=== PATIENT | female | born 1985 | race Caucasian/White ===

== ENCOUNTER 2021-10-02 23:03 | Emergency (ER) | payer MEDICAID ==
[~2021-10-02] VITALS: Ht 167.6 cm; Wt 81.8 kg
[2021-10-02 23:16] VITALS: BP 179/122
[2021-10-03] MEDS ORDERED: TRIA15CR61 TOP (00:45)
[2021-10-03] MEDS ORDERED: triamcinolone acetonide 40mg/ml inj IM ONE (00:45)
[2021-10-03] MEDS ORDERED: DOXY-11 PO (00:45)
== END 2021-10-03 01:00 | disposition home or self-care (01) ==
LOC: ER 23:04
DX: L40.9 Psoriasis, unspecified (principal); R21 Rash and other nonspecific skin eruption; F17.200 Nicotine dependence, unspecified, uncomplicated; Z88.5 Allergy status to narcotic agent
CPT/HCPCS: 96372; 99283; J3301

== ENCOUNTER 2021-12-19 20:44 | Emergency (ER) | payer MEDICAID ==
[~2021-12-19] VITALS: Ht 170.2 cm; Wt 81.0 kg
[2021-12-19] MEDS ORDERED: metoclopramide 5 mg/ml inj IV ONE (23:15)
[2021-12-19] MEDS ORDERED: ringers solution, lactated 500ml IV solution IV ONE (23:15)
[2021-12-19] MEDS ORDERED: diphenhydrAMINE 50 mg/ml inj IV ONE (23:15)
[2021-12-19] MEDS ORDERED: ketorolac trometh. 30mg/ml inj. IV ONE (23:15)
[2021-12-20 01:29] VITALS: BP 136/85
== END 2021-12-20 01:37 | disposition home or self-care (01) ==
LOC: ER 20:46
DX: G43.909 Migraine, unspecified, not intractable, without status migrainosus (principal); I10 Essential (primary) hypertension; Z88.5 Allergy status to narcotic agent; Z88.6 Allergy status to analgesic agent
CPT/HCPCS: 12001; 96374; 96375; 99285; J1200; J1885; J2765; J7120; 29130

== ENCOUNTER 2023-01-09 22:05 | Emergency (ER) | payer MEDICAID ==
[~2023-01-09] VITALS: Ht 170.2 cm; Wt 80.0 kg
[2023-01-09 22:21] VITALS: TEMP 98.2
[2023-01-09] MEDS ORDERED: iohexol 350MG/ML 100ml bottle IV ONE (22:22)
[2023-01-09 22:28] LABS: BASOPHILS # (AUTO) 0.1 X10'3 (0-0.2); EOSINOPHILS # (AUTO) 0.2 X10'3 (0-0.9); EOSINOPHILS % (AUTO) 1.2 % (0-6); HEMATOCRIT 43.9 % (35.0-45.0); LYMPHOCYTES # (AUTO) 2.7 X10'3 (1.1-4.8); LYMPHOCYTES % (AUTO) 21.8 % (21-51); MEAN CORPUSCULAR HEMOGLOBIN 32.2 PG (27.0-31.0); MEAN CORPUSCULAR HGB CONC 34.1 g/dL (33.0-36.5); MEAN CORPUSCULAR VOLUME 94.5 FL (78-98); MEAN PLATELET VOLUME 8.1 FL (7.4-10.4); MONOCYTES # (AUTO) 0.7 X10'3 (0-0.9); NEUTROPHILS # (AUTO) 8.6 X10'3 (1.8-7.7); PLATELET COUNT 299 X10'3 (140-440); RED BLOOD COUNT 4.64 X10'6 (4.20-5.60); WHITE BLOOD COUNT 12.3 X10'3 (4.5-11.0)
[2023-01-09 22:33] LABS: APTT 30 SECONDS (22-32); INR 0.9 INR; PROTHROMBIN TIME 10.1 SECONDS (9.0-12.0)
[2023-01-09 22:35] LABS: ALANINE AMINOTRANSFERASE 27 U/L (12-78); ALBUMIN 3.9 G/DL (3.4-5.0); ALBUMIN/GLOBULIN RATIO 1.1 (1.1-1.5); ALKALINE PHOSPHATASE 82 IU/L (46-116); ANION GAP 8 (8-16); ASPARTATE AMINO TRANSFERASE 19 U/L (10-37); BILIRUBIN,TOTAL 1.3 MG/DL (0.1-1.0); BLOOD UREA NITROGEN 11 MG/DL (7-18); BUN/CREATININE RATIO 12.5 (10.0-20.0); CALCIUM 8.8 MG/DL (8.5-10.1); CHLORIDE 101 MMOL/L (99-107); CREATININE 0.88 MG/DL (0.40-0.90); GLUCOSE 97 MG/DL (70-104); POTASSIUM 3.5 MMOL/L (3.5-5.1); SODIUM 138 MMOL/L (135-145); TOTAL CARBON DIOXIDE 28.9 MMOL/L (24-32); TOTAL PROTEIN 7.4 G/DL (6.4-8.2); eCRCL 83 ML/MIN; eGFR 72 ML/MIN
[2023-01-09] MEDS ORDERED: proCHLORperazine 10 MG/2 ml inj IV ONE (23:05)
[2023-01-09] MEDS ORDERED: acetaminophen 325mg tablet PO ONE (23:05)
[2023-01-09] MEDS ORDERED: ketorolac trometh. 30mg/ml inj. IV ONE (23:05)
[2023-01-09] MEDS ORDERED: SUMAtriptan succ. 6 MG/0.5ml vial SQ ONE (23:05)
[2023-01-09] MEDS ORDERED: normal saline 1000ml 1,000 ML IV ONE (23:10)
[2023-01-10 01:13] VITALS: O2SAT 93
[2023-01-10 01:45] VITALS: BP 139/77; PULSE 75; RESP 15
== END 2023-01-10 02:31 | disposition home or self-care (01) ==
LOC: ER 22:06
DX: G43.809 Other migraine, not intractable, without status migrainosus (principal); I10 Essential (primary) hypertension; R79.1 Abnormal coagulation profile; Z88.5 Allergy status to narcotic agent
CPT/HCPCS: 36415; 70450; 70496; 70498; 71045; 80053; 85025; 85610; 85730; 93005; 96361; 96372; 96374; 96375; 99285; J0780; J1885; J3030; J3490; J7030; Q9967